=== PATIENT | male | born 1955 | race African-American/Black ===

== ENCOUNTER 2022-06-25 11:24 | Emergency (ER) | payer MEDICAID ==
[~2022-06-25] VITALS: Ht 172.7 cm; Wt 81.0 kg
[2022-06-25] MEDS ORDERED: KETOROLAC 60MG/2ML VIAL IM ONE (12:45)
[2022-06-25] MEDS ORDERED: CYCLOBENZAPRINE 10MG TABLET PO ONE (12:45)
[2022-06-25] MEDS ORDERED: LIDOCAINE 5% PATCH TOP SCH (12:45)
[2022-06-25] MEDS ORDERED: NAPR-1176 MT (14:02)
[2022-06-25] MEDS ORDERED: LIDO700A30 TP (14:02)
[2022-06-25] MEDS ORDERED: CYCL10TA21 MT (14:02)
[2022-06-25] MEDS ORDERED: KETOROLAC 60MG/2ML VIAL IM NR (14:15)
[2022-06-25] MEDS ORDERED: CYCLOBENZAPRINE 10MG TABLET PO NR (14:15)
[2022-06-25 14:26] VITALS: BP 131/74
== END 2022-06-25 15:21 | disposition home or self-care (01) ==
LOC: ER 11:24
DX: M54.59 Other low back pain (principal); M79.662 Pain in left lower leg; I10 Essential (primary) hypertension; E11.9 Type 2 diabetes mellitus without complications
CPT/HCPCS: 96372; 99283; J1885